=== PATIENT | female | born 1995 | race Caucasian/White ===

== ENCOUNTER 2025-01-08 16:56 | Emergency (ER) | payer OTHER, SELFPAY ==
--- NOTE | ~2025-01-08 | XR_ITS ---
CLINICAL HISTORY: fall, right posterolateral rib pain Chest and right ribs. Findings: Heart size is normal. There is no pneumothorax or pleural effusion. Impression: No acute fracture is identified. This document has been electronically signed by: Lennox Valdes MD on 01/08/2025 18:26:20
--- NOTE | ~2025-01-08 | CT_ITS ---
CLINICAL HISTORY: fall right sided HS CT of the head without contrast. No comparison. Findings: No acute hemorrhage or infarct is seen. No masses are identified and there is no hydrocephalus. There is no mass-effect. Impression: No acute intracranial abnormality is identified. There is prominent right sphenoid sinus disease. This document has been electronically signed by: Lennox Valdes MD on 01/08/2025 20:26:11
--- NOTE | ~2025-01-08 | CT_ITS ---
CLINICAL HISTORY: fall head strike CT of the cervical spine without contrast. No comparison. Findings: There is prominent right sphenoid sinus disease. No acute fractures are seen. There is no subluxation. 5 mm nodular density right upper lung. Impression: No acute fractures. Small nodular density right upper lung statistically likely incidental although technically indeterminate consider comparison to previous or follow-up. This document has been electronically signed by: Lennox Valdes MD on 01/08/2025 20:29:57
[2025-01-08 17:29] VITALS: BP 137/87; PULSE 80; RESP 16; TEMP 36.7; O2SAT 96; BMI 27.1
--- NOTE | 2025-01-08 17:29 | ED_ITS ---
HPI - Fall General Chief Complaint: Headache Stated Complaint: Fall Lat Week- Back Bruising, Hit Head- Palpitatio Time Seen by Provider: 01/08/25 21:27 Source: patient Mode of arrival: ambulatory Limitations: no limitations History of Present Illness ED Provider: Dr. Shante Baker HPI Narrative: Patient comes to the emergency room complaining of a headache for 1 week. Patient states that about a week ago, patient was helping her autistic son to take a bath and the child ran away from her. The patient tried running after him but she fell. Patient states that she hit her head, did not lose consciousness, patient is not on blood thinners. Patient states that initially she was doing okay but within a few hours she started having a pounding headache on the right side of the head, now it is the whole head. Patient states that the headache has been present for about a week now. Complaining of nausea, no vomiting. Denies any motor dysfunction or weakness Related Data Previous Rx's ?Medication ?Instructions ?Recorded ketorolac 10 mg tablet 10 mg PO Q8H PRN pain #12 ta bs 01/08/25 metoclopramide HCl 5 mg tablet 5 mg PO .T.i.d. PRN zachary sea and 01/08/25 (Reglan) vomiting #12 tabs Allergies Allergy/AdvReac Type Severity Reaction Status Date / Time latex Allergy Hives Verified 01/08/25 17:32 peanut Allergy Anaphylaxis Verified 01/08/25 17:32 Review of Systems 2 Review of Systems: Constitutional : No Weight loss, No Fever, No Chills, No Night Sweats, No Fatigue, No Malaise ENT/Mouth : No Hearing loss, No Ear Pain, No Nasal Congestion, No Sinus Pain, No Hoarseness, No sore throat, No Rhinorrhea, No Swallowing Difficulty Eyes: No Eye Pain, No Swelling, No Redness, No Foreign Body, No Discharge, No Vision Changes Cardiovascular : No Chest Pain, No SOB, No Dyspnea on Exertion, No Orthopnea, No Edema, No Palpitations Respiratory : No Cough, No Sputum, No Wheezing, No Smoke Exposure, No Dyspnea Gastrointestinal : Complaining of Nausea, No Vomiting, No Diarrhea, No Constipation, No abdominal Pain, No Hematochezia, No Melena Genitourinary : no irregular bleeding, No Dysuria, No Urinary Frequency, No Hematuria, No Urinary Incontinence, No Urgency, No Flank Pain, No Urinary Flow Changes, No Hesitancy Musculoskeletal : Complaining of rib pain, thigh pain, overall musculoskeletal pain on the right side of her body where she landed Skin : No Skin Lesions, No rash Neuro : No Weakness, No Numbness, No Paresthesias, No Loss of Consciousness, No Dizziness, complaining of a headache for 1 week Psych : No Anxiety/Panic, No Depression, No SI/HI/AH/VH, No Social Issues, Heme/Lymph: No Bruising, No Bleeding,No Lymphadenopathy Endocrine : No Polyuria, No Polydipsia, No Temperature Intolerance ON LICENSE OF [facility] Social History Social History Alcohol intake: current Alcohol intake frequency: holidays/special occasions only Smoked in Last 30 Days: No Use of substances other than those prescribed or required for medical reasons: No Advance Directives: No Advance Directives Information Provided: No Do you have a plan to hurt others: No Plan Patient : No Physical Exam 2 Vital Signs: Vital Signs: Last Vital Signs Temp 98.2 F 01/08/25 21:46 Pulse 66 01/08/25 21:46 Resp 18 01/08/25 21:46 BP 118/81 01/08/25 21:46 Pulse Ox 99 01/08/25 21:46 O2 Del Method Room Air 01/08/25 21:46 BMI result Body Mass Index 27.1 Const: Other: Appearance: Alert. Oriented X3. No acute distress. Eyes: Pupils equal, round and reactive to light. ENT: Pharynx normal. Neck: Normal inspection. Neck supple. No lymph nodes noted. No crepitus CVS: Normal heart rate and rhythm. Pulses normal. Normal S1 and S2 Respiratory: No respiratory distress. Breath sounds normal. No Wheezing. No rales Abdomen: Soft and nontender. No rigidity. No distention. Skin: Skin warm and dry. Normal skin color. Normal skin turgor. Patient has a small ecchymosis barely noticeable on the posterior aspect of the right shoulder, normal range of motion Extremities: No lower extremity edema. No Lacerations. No Rash Neuro: Oriented X 3. No motor deficit. No sensory deficit. Moving all extremities. No slurred speech. CN 2 through 12 grossly intact Psych: calm, cooperative, normal affect Course Course Course Narrative: 01/08/25 [id number] BRIAN Grossman This is a Rapid Medical Examination (RME) performed by Aura Germain PA-C in triage. Full HPI, ROS, assessment and treatment plan per primary provider in the Main ED. Hx: here s/p mechanical fall 1 wk ago. reports [place] when [place] and fell, hitting the right side of her head on the concrete. no LOC. not on anticoagulation. now having 10/10 headache and dizziness. Primarily to right side. Trialing Excedrin migraine without improvement. Also endorses right upper back/rib pain and right thigh pain with bruising. PE/vitals: Noted bruising to right buttock/thigh. Tender to palpation along right posterolateral ribs. Plan: imaging, hcg Medications Administered Discontinued Medications Generic Name Dose Route Start Last Admin Trade Name Freq PRN Reason Stop Dose Admin Ketorolac Tromethamine 60 mg 01/08/25 21:34 01/08/25 21:40 Ketorolac Tromethamine 60 Mg/2 Ml Vial IM 01/08/25 21:35 60 mg ONCE ONE Administration Metoclopramide HCl 10 mg 01/08/25 21:34 01/08/25 21:40 Metoclopramide Hcl 10 Mg/2 Ml Vial IM 01/08/25 21:35 10 mg ONCE ONE Administration Medical Decision Making Medical Decision Making [facility] Narrative: My interpretation of labs: No significant abnormality in patient's hematology and chemistry, normal LFTs, hCG is 5, nonspecific CT scans of the head and cervical spine did not show any acute abnormalities. Nonspecific statistically incidental small nodular density in the right upper lung Rib x-ray did not show any fractures I discussed the above-mentioned with the patient. Patient likely has a concussion. Patient was given IM ketorolac and Reglan. Discussed with the patient that the main treatment for the concussion will be brain rest. After the IM medication, patient states that she feels much better. Differential Diagnosis Differential Diagnoses: The differential diagnosis associated with the presentation includes (Contusion, concussion, intracranial bleed, cervical spine injury, rib fractures) Admission/Observation Consideration of admission/observation: Escalation of care including admission/observation considered (Given patient's length of symptoms and presentation, observation was considered) Lab Data [facility] Lab Attestation statement: I reviewed the patient's lab results. 01/08/25 18:16 01/08/25 18:16 Labs: Lab Results 01/08/25 Range/Units 18:16 WBC 10.8 (4.8-10.8) X10*3/uL RBC 4.05 L (4.20-5.50) X10*6/uL Hgb 12.8 (12.0-16.0) g/dl Hct 37.1 (37.0-47.0) % MCV 91.6 (80.0-98.0) fL MCH 31.6 (27.0-33.0) pg MCHC 34.5 (31.0-35.0) g/dl RDW 12.2 (11.0-16.0) % Plt Count 347 (160-400) X10*3/uL MPV 9.8 (9.4-12.3) fL Immature Gran % (Auto) 0.3 (0.0-0.4) % Neut % (Auto) 69.3 (45-73) % Lymph % (Auto) 24.2 (20-40) % Carbon % (Auto) 5.0 (2-11) % Eos % (Auto) 0.6 (0-4) % Baso % (Auto) 0.6 (0-2) % Lymph # (Auto) 2.6 (1.2-4.9) X10*3/uL Carbon # (Auto) 0.5 (0.1-1.2) X10*3/uL Eos # (Auto) 0.1 (0.0-0.4) X10*3/uL Baso # (Auto) 0.1 (0.0-0.2) X10*3/uL Abs Immat Gran (auto) 0.03 (0.00-0.03) X10*3/uL Absolute Neuts (auto) 7.5 (2.0-8.3) x10*3/uL Absolute Nucleated RBC 0.000 (0.0-0.012) X10*3/uL Nucleated RBC % (auto) 0.0 (0.0-0.2) /100WBC Sodium 141 (135-145) mmol/L Potassium 4.1 (3.3-5.1) mmol/L Chloride 107 (96-108) mmol/L Carbon Dioxide 26 (22-29) mmol/L Anion Gap 12 (12-20) BUN 6 L (9-16) mg/dL Creatinine 0.65 (0.5-1.4) mg/dL Estim Creat Clear Calc 112.6 Estimated GFR > 60 Random Glucose 91 (60-115) mg/dL Calcium 9.7 (8.4-10.2) mg/dL Magnesium 2.1 (1.6-2.6) mg/dL Total Bilirubin 0.4 (0.0-1.0) mg/dL AST 36 H (5-31) U/L ALT 27 (0-31) U/L Alkaline Phosphatase 81 (39-117) U/L Total Protein 7.5 (6.5-8.0) g/dL Albumin 4.6 (3.5-5.0) g/dL Beta HCG, Quant 5 mIU/mL Independent Interpretation I performed an independent interpretation of an: Plain X-Ray and CT Scan Radiology Impression Discussion of test interpretation with radiology: I have reviewed the radiologist's reading. Radiologist Impression: No acute fractures. Small nodular density right upper lung statistically likely incidental although technically indeterminate consider comparison to previous or follow-up. No acute intracranial abnormality is identified. There is prominent right sphenoid sinus disease. Heart size is normal. There is no pneumothorax or pleural effusion. Impression: No acute fracture is identified. Critical Care Time Critical Care Time Critical Care Time: Yes Total Critical Care Time: 35 Attestation: I have personally provided critical care time. Time includes review of lab data, radiology results, discussion with consultants, and monitoring for potential decompensation. Intervention performed as documented. Discharge Plan Discharge Clinical Impression: Concussion, Headache Patient Disposition: Home, Self-Care Instructions: Concussion (ED), Acute Headache (ED) Additional Instructions: Please follow-up with your primary care physician tomorrow. If you have any worsening or new symptoms, please return to the emergency room or call 911 Prescriptions: New ketorolac 10 mg tablet 10 mg PO Q8H PRN (Reason: pain) Qty: 12 0RF Rx Instructions: Do not use any NSAIDs with this medication including ibuprofen. Only Tylenol if needed metoclopramide HCl [Reglan] 5 mg tablet 5 mg PO .T.i.d. PRN (Reason: nausea and vomiting) Qty: 12 0RF Rx Instructions: Take together with ketorolac prn headache/nausea/vomiting Print Language: Sinhala
[2025-01-08 18:22] LABS: MANUAL DIFF FLAG NO
[2025-01-08 18:46] LABS: Alanine Aminotransferase 27 U/L (0-31); Albumin Level 4.6 g/dL (3.5-5.0); Alkaline Phosphatase 81 U/L (39-117); Anion Gap 12 (12-20); Aspartate Amino Transferase 36 U/L (5-31); Blood Urea Nitrogen 6 mg/dL (9-16); Calcium 9.7 mg/dL (8.4-10.2); Carbon Dioxide 26 mmol/L (22-29); Chloride 107 mmol/L (96-108); Creatinine Clr Calc Pharmacy 112.6; Estimated Glomerular Filt Rate > 60; Magnesium 2.1 mg/dL (1.6-2.6); Potassium 4.1 mmol/L (3.3-5.1); Sodium 141 mmol/L (135-145); Total Protein 7.5 g/dL (6.5-8.0)
[2025-01-08 18:49] LABS: Hematocrit 37.1 % (37.0-47.0); Hemoglobin 12.8 g/dl (12.0-16.0); Imm Gran Abs Auto 0.03 X10*3/uL (0.00-0.03); Imm Gran Pct Auto 0.3 % (0.0-0.4); Lymphocytes Absolute Auto 2.6 X10*3/uL (1.2-4.9); Mean Corpuscular HGB Conc 34.5 g/dl (31.0-35.0); Mean Corpuscular Hemoglobin 31.6 pg (27.0-33.0); Mean Corpuscular Volume 91.6 fL (80.0-98.0); NRBC Abs Auto 0.000 X10*3/uL (0.0-0.012); NRBC Pct Auto 0.0 /100WBC (0.0-0.2); Platelet Count 347 X10*3/uL (160-400); Red Blood Count 4.05 X10*6/uL (4.20-5.50); White Blood Count 10.8 X10*3/uL (4.8-10.8)
[2025-01-08 19:07] VITALS: BP 110/71; PULSE 75; RESP 18; TEMP 36.6; O2SAT 99
--- NOTE | 2025-01-08 19:22 | PC.NURSE ---
Assumed care of this Pt at 1900.
[2025-01-08 21:46] VITALS: BP 118/81; PULSE 66; RESP 18; TEMP 36.8; O2SAT 99
[2025-01-08 22:32] VITALS: BP 118/81; PULSE 66; RESP 18; TEMP 36.8; O2SAT 99
== END 2025-01-08 22:33 | disposition home or self-care (01) ==
PROVIDERS: Physician Assistant Medical; Emergency Provider Emergency Medicine
DX: S06.0X0A Concussion without loss of consciousness, initial encounter (principal); R51.9 Headache, unspecified; R07.81 Pleurodynia; R00.2 Palpitations; M54.50 Low back pain, unspecified; R10.2 Pelvic and perineal pain; M54.2 Cervicalgia; X58.XXXA Exposure to other specified factors, initial encounter; Y93.9 Activity, unspecified; Y92.9 Unspecified place or not applicable; Y99.8 Other external cause status
CPT/HCPCS: 36415; 70450; 71101; 72125; 80053; 83735; 84702; 85025; 96372; 99284; J1885; J2765

== ENCOUNTER → 2025-01-08 17:33 | Outpatient (BNV) | payer SELFPAY | PROVIDERS: Visit Provider Radiology Diagnostic Radiology | DX: S09.90XA Unspecified injury of head, initial encounter (principal); J01.30 Acute sphenoidal sinusitis, unspecified; R07.81 Pleurodynia; W19.XXXA Unspecified fall, initial encounter | CPT/HCPCS: 70450; 71101; 72125 ==